=== PATIENT | male | born 1970 | race Two or more races ===

== ENCOUNTER 2022-07-31 07:48 | Emergency (ER) | payer OTHER ==
[~2022-07-31] VITALS: Ht 162.6 cm; Wt 81.6 kg
[2022-07-31] MEDS ORDERED: CRESTOR10 MG PO (08:16)
== END 2022-07-31 10:34 | disposition home or self-care (01) ==
LOC: ER 07:48
DX: S00.81XA Abrasion of other part of head, initial encounter (principal); S80.211A Abrasion, right knee, initial encounter; W19.XXXA Unspecified fall, initial encounter; Y93.9 Activity, unspecified; Y92.9 Unspecified place or not applicable; Y99.9 Unspecified external cause status; I10 Essential (primary) hypertension

== ENCOUNTER 2023-05-13 06:14 | Day surgery (SDC) | payer OTHER ==
[~2023-05-13] VITALS: Ht 162.6 cm; Wt 82.6 kg
[~2023-05-13 06:14] MED LIST: CRESTOR10 MG PO; LEVOTHYROXINE25 MCG PO
[2023-05-13] MEDS ORDERED: KETO10TA2 PO (09:35)
[2023-05-13] MEDS ORDERED: MIRALAX17 GM PO (09:35)
[2023-05-13] MEDS ORDERED: TYLENOL ARTHRI650 MG PO (09:35)
[2023-05-13] MEDS ORDERED: TRAMADOL HCL50 MG PO (09:35)
== END 2023-05-13 14:00 | disposition home or self-care (01) ==
LOC: CIR.AMB 06:14
PROVIDERS: ATTEND Surgery
DX: K40.20 Bilateral inguinal hernia, without obstruction or gangrene, not specified as recurrent (principal); K42.9 Umbilical hernia without obstruction or gangrene; Z20.822 Contact with and (suspected) exposure to COVID-19
CPT/HCPCS: 49650; 49591; C1781